=== PATIENT | male | born 1990 | race Caucasian/White ===

== ENCOUNTER 2017-02-03 10:46 | Emergency (ER) | payer OTHER ==
[~2017-02-03] VITALS: Ht 182.9 cm; Wt 72.7 kg
[2017-02-03] MEDS ORDERED: ZOFRAN ODT4 MG PO (11:39)
[2017-02-03] MEDS ORDERED: MOTRIN600 MG PO (11:39)
[2017-02-03 11:56] VITALS: BP 119/67
== END 2017-02-03 11:57 | disposition home or self-care (01) ==
LOC: EME 10:46
PROC: 3E0234Z Introduction of Serum, Toxoid and Vaccine into Muscle, Percutaneous Approach (ICD-10-PCS; principal; 2017-02-03)
DX: S09.8XXA Other specified injuries of head, initial encounter (principal); S00.81XA Abrasion of other part of head, initial encounter; M54.2 Cervicalgia; V44.5XXA Car driver injured in collision with heavy transport vehicle or bus in traffic accident, initial encounter; W22.10XA Striking against or struck by unspecified automobile airbag, initial encounter; Y92.410 Unspecified street and highway as the place of occurrence of the external cause; Z23 Encounter for immunization; F17.200 Nicotine dependence, unspecified, uncomplicated
CPT/HCPCS: 99281; 99284

== ENCOUNTER 2017-08-27 14:18 | Emergency (ER) | payer OTHER ==
[~2017-08-27] VITALS: Ht 182.9 cm; Wt 66.5 kg
[~2017-08-27 14:18] MED LIST: MOTRIN600 MG PO; ZOFRAN ODT4 MG PO
[2017-08-27 15:21] LABS: HEMATOCRIT 43.7 % (38.0-50.0); HEMOGLOBIN 14.8 G/DL (12.5-16.6); MCH 30.5 PG (29.0-34.0); MCHC 33.9 G/DL (30.0-36.0); MCV 89.9 FL (86-99); PLATELET COUNT 249 K/uL (156-360); RBC DIS.WIDTH-CV 12.7 % (11.8-14.6); RBC DIS.WIDTH-SD 41.7 % (39-53); RED BLOOD COUNT 4.86 M/uL (4.00-5.50); WHITE BLOOD COUNT 9.5 K/uL (4.1-10.2)
[2017-08-27 15:29] LABS: ALBUMIN 4.7 g/dL (3.2-4.8); CHLORIDE 100 mEq/L (99-109); POTASSIUM 3.7 mEq/L (3.7-5.4); SODIUM 139 mEq/L (136-147)
[2017-08-27 15:30] LABS: PTT 24.3 SEC (25-37)
[2017-08-27 15:31] LABS: GLUCOSE 91 mg/dL (70-99)
[2017-08-27 15:32] LABS: TOTAL PROTEIN 7.2 g/dL (6.4-8.3)
[2017-08-27 15:33] LABS: TOTAL BILIRUBIN 0.9 mg/dL (0.0-1.0)
[2017-08-27 15:35] LABS: ALKALINE PHOSPHATASE 66 IU/L (3-129); CREATININE 0.9 mg/dL (0.6-1.3); GFR ESTIMATE (CALCULATED) > 59 mL/min/ (58.99-99999)
[2017-08-27 15:36] LABS: UREA NITROGEN (BUN) 17 mg/dL (9-23)
[2017-08-27 15:37] LABS: AST (GOT) 94 IU/L (2-34)
[2017-08-27 15:38] LABS: ALT (GPT) 85 IU/L (3-49)
[2017-08-27 15:39] LABS: LIPASE 29 U/L (1.0-51.0)
[2017-08-27 17:16] LABS: APPEARANCE CLEAR ((CLEAR)); BILIRUBIN NEGATIVE; BLOOD NEGATIVE; COLOR YELLOW ((YELLOW)); GLUCOSE (STRIP) NEGATIVE; KETONES 5; LEUKOCYTES NEGATIVE; NITRITE NEGATIVE; PROTEIN (STRIP) 30; UCUL ADDED? NO
[2017-08-27 17:17] LABS: SPECIFIC GRAVITY > 1.060 (1.000-1.030)
[2017-08-27 17:28] LABS: AMPHETAMINE PRESUMPTIVE POSITIVE (500 ng/mL); COCAINE PRESUMPTIVE POSITIVE (150 ng/mL); METHAMPHETAMINE NEGATIVE (500 ng/mL); OPIATES (MORPHINE) NEGATIVE (100 ng/mL); PHENCYCLIDINE NEGATIVE (25 ng/mL); THC CANNABINOIDS PRESUMPTIVE POSITIVE (50 ng/mL)
[2017-08-27 17:29] LABS: BARBITURATES NEGATIVE (200 ng/mL); BENZODIAZEPINES NEGATIVE (150 ng/mL); BUPRENORPHINE NEGATIVE (10 ng/mL); METHADONE NEGATIVE (200 ng/mL); OXYCODONE PRESUMPTIVE POSITIVE (100 ng/mL); PROPOXYPHENE NEGATIVE (300 ng/mL); TRICYCLIC ANTIDEPRESSANTS NEGATIVE (300 ng/mL)
[2017-08-27] MEDS ORDERED: NAPROSYN500 MG PO (18:50)
[2017-08-27 19:50] VITALS: BP 117/70
== END 2017-08-27 19:55 | disposition home or self-care (01) ==
LOC: EME 14:18 → TRA 14:18
PROVIDERS: Physician Assistant
DX: S00.83XA Contusion of other part of head, initial encounter (principal); S00.03XA Contusion of scalp, initial encounter; S00.11XA Contusion of right eyelid and periocular area, initial encounter; S10.93XA Contusion of unspecified part of neck, initial encounter; S20.212A Contusion of left front wall of thorax, initial encounter; S20.211A Contusion of right front wall of thorax, initial encounter; S30.1XXA Contusion of abdominal wall, initial encounter; S40.012A Contusion of left shoulder, initial encounter; S00.412A Abrasion of left ear, initial encounter; S00.411A Abrasion of right ear, initial encounter; S40.812A Abrasion of left upper arm, initial encounter; S40.811A Abrasion of right upper arm, initial encounter; S30.811A Abrasion of abdominal wall, initial encounter; S20.319A Abrasion of unspecified front wall of thorax, initial encounter; Y04.0XXA Assault by unarmed brawl or fight, initial encounter; R42 Dizziness and giddiness; R06.02 Shortness of breath; F17.200 Nicotine dependence, unspecified, uncomplicated
CPT/HCPCS: 70450; 70487; 70498; 71260; 72126; 72129; 72132; 73030; 73090; 74177; 80053; 81003; 83690; 84999; 85027; 85610; 85730; 86850; 86900; 86901; 99281; 99285; J3010; J7030